=== PATIENT | female | born 1960 | race Caucasian/White ===

== ENCOUNTER → 2016-12-17 | Outpatient (CLI) | payer OTHER ==
--- NOTE | 2016-12-17 15:07 | RADRPT ---
PROCEDURE: XR Pelvis and Hips. CLINICAL INDICATION: Pelvic pain. Bilateral hip pain. TECHNIQUE: Five views. Frontal pelvis. Frontal and lateral right hip. Frontal and lateral left hip. COMPARISON: No prior studies are available for comparison. FINDINGS: There is no fracture or dislocation. The soft tissues are normal. There are degenerative changes of the hips with small osteophytes noted. There is no joint space na rrowing or deformity. There is no lytic or blastic lesion. There is no radiopaque foreign body. IMPRESSION: 1. Mild degenerative changes of both hips. 2. Otherwise unremarkable x-ray pelvis and bilateral hips. RPTAT: QQ .Sujit Green MD, MD Date Time Electronically viewed and signed by .Sujit Green MD, MD on 12/17/2016 15:06 .R/
== END | disposition home or self-care (01) ==
LOC: HKI 13:55
DX: M25.552 Pain in left hip (principal); M25.551 Pain in right hip
CPT/HCPCS: 73523; G0463

== ENCOUNTER → 2017-01-21 | Outpatient (CLI) | payer OTHER ==
--- NOTE | 2017-03-07 12:23 | HKNOTE ---
DATE OF SERVICE: 01/21/2017 HISTORY OF PRESENT ILLNESS: The patient comes in for review of her MRI scan. She had the MRI on 01/07/2017. Currently her main pain is in the right groin and radiates down the anterior thigh and the medial side of the knee. There is no numbness or tingling in the leg. The left leg has an identical pain distribution but is less than on the right side. The pain is worse when she is sitting. She has no trouble walking. The pain she had of the lateral aspect of the greater trochanter is now completely gone. Note that she got a dental abscess one month ago. She was not given antibiotics until the pain started on Friday afternoon. Today is the first day that she has no pain. The dentist told her that antibiotics after hip replacement are not required beyond two years. Her dentist is Dr. Suarez, phone number [phone] PHYSICAL EXAMINATION: Blood pressure 103/58, temperature 97.6. The patient walks without a walking aid. She is not limping. Both hips have full range of motion without pain. IMAGING: A MRI scan of the lumbar spine obtained on 01/07/[address] Khai Wilson and shows "At L3-4, there is retrolisthesis with a 3 mm, right greater than left, asymmetric disc bulge which causes slight narrowing of the lateral recess on the right side, greater than the left side without central canal stenosis. No obvious nerve root impingement. At L2-3, slight retrolisthesis which mildly narrows the right and slightly narrows the left neural foramina. At L5, S1, slight right disc bulge." LABORATORY DATA: Laboratory results received on 12/17/2016 with a sedimentation rate of 6. White cell count is 7.5. C-reactive protein is normal. DISCUSSION: The patient does not appear to have infection in the hips, although there is still a small chance that she may have. She is being referred back to Dr. Wilson with a spine MRI, and she will be seen again in two months' time for re-evaluation. Dictated By: Richard Stanton MD /aniya/maria del carmen /Document#: [id number]
== END | disposition home or self-care (01) ==
LOC: HKI 13:36
DX: M25.551 Pain in right hip (principal); M25.552 Pain in left hip